=== PATIENT | female | born 1955 | race Caucasian/White ===

== ENCOUNTER 2016-07-04 15:20 | Emergency (ER) | payer MEDICARE, OTHER ==
[2016-07-04 13:24] LABS: BASOPHILS 0.3 %; BASOPHILS ABSOLUTE 0.03 10/3/uL (0.0-0.16); ER CBC TAT 0 Hrs 03 Mins; HEMATOCRIT 41.7 % (36.0-48.0); HEMOGLOBIN 14.9 g/dL (12.0-16.0); IMMATURE GRANULOCYTES 0.3 %; IMMATURE GRANULOCYTES ABSOLUTE 0.03 10/3/uL (0.0-0.11); LYMPHOCYTES 30.4 %; LYMPHOCYTES ABSOLUTE 2.94 10/3/uL (0.67-4.30); MEAN CORPUS HGB CONC 35.7 g/dL (32.0-36.0); MEAN CORPUSCULAR HEMOGLOB 34.7 pg (26.0-34.0); MEAN PLATELET VOLUME 8.6 fL (9.2-13.0); MONOCYTES 9.1 %; MONOCYTES ABSOLUTE 0.88 10/3/uL (0.21-1.20); NEUTROPHILS 58.9 %; PLATELET COUNT 376 10/3/uL (150-400); RBC DISTRIBUTION WIDTH 12.4 % (12.0-16.0); WHITE BLOOD CELLS 9.7 10/3/uL (4.5-10.5)
[2016-07-04 13:25] LABS: MANUAL DIFF NO %
[2016-07-04 13:27] LABS: ASCORBIC ACID (UR NOT ORDER) NEG (NEG); BILIRUBIN, URINE NEGATIVE (NEG); KETONE, URINE NEGATIVE (NEG); LEUKOCYTE ESTERASE(NOT OR NEG (NEG); NITRITE (URINE) NEG (NEG); WBC (NOT ORDERED) (RFLEX) 1 (0-5)
[2016-07-04 13:40] LABS: ALKALINE PHOSPHATASE 67 U/L (45-117); BUN (BLOOD UREA NITROGEN) 11 MG/DL (6-23); CALCIUM, SERUM 8.9 MG/DL (8.5-10.4); CHLORIDE, SERUM 102 MMOL/L (96-112); CO2 (CARBON DIOXIDE) 27 MMOL/L (24-34); CREATININE 0.86 MG/DL (0.55-1.02); GFR AFRICAN AMERICAN 86 ML/MIN (>=60); GFR NON AFRICAN AMERICAN 74 ML/MIN (>=60); GLOBULIN 3.9 G/DL (2.5-4.1); GLUCOSE, SERUM 105 MG/DL (60-99); POTASSIUM, SERUM 3.3 MMOL/L (3.5-5.3); SGPT(ALT) 20 U/L (5-65); SODIUM, SERUM 140 MMOL/L (135-148); TOTAL BILIRUBIN 0.3 MG/DL (0-1.2); TOTAL PROTEIN 7.9 G/DL (6.0-8.5)
[2016-07-04 13:41] LABS: SGOT(AST) 17 U/L (5-40)
[~2016-07-04 15:20] MED LIST: ACTONEL PO; ACTONEL150 MG PO; ATEN50 PO; BENEFIBE6 PO; CELEBREX2 PO; CONSTULOSE PO; COREG; COREG12 PO; FENESIN IR400 MG PO; FLUCON150 PO; KLONO1 PO; KLONO2 PO; KLONOPIN; KLONOPIN WAF1 MG PO; LEVAQUIN750 MG PO; LOP25 PO; MIRALAXPKT PO; OMEPRAZOLE; OXYCOD PO; OXYCON20 PO; PERCOCET1 TAB PO; PR25 PO; PRILO PO; PRILOSEC; PRILOSEC40 MG PO; ROXICODONE30 MG PO; SYSTANE OP; VAGIFEM25 MCG V; VALTREX1 GM PO; VICODINTAB PO; ZOCOR; ZOCOR40 PO
== END 2016-07-04 15:30 | disposition home or self-care (01) ==
LOC: ER 15:20
PROVIDERS: Nurse Practitioner Acute Care
DX: R10.31 Right lower quadrant pain (principal); R10.32 Left lower quadrant pain; E87.6 Hypokalemia; I73.9 Peripheral vascular disease, unspecified; F41.9 Anxiety disorder, unspecified; F17.200 Nicotine dependence, unspecified, uncomplicated; Z90.710 Acquired absence of both cervix and uterus; Z91.038 Other insect allergy status; Z79.899 Other long term (current) drug therapy
CPT/HCPCS: 74176; 80053; 81001; 83690; 85025; 96374; 99285; A9270-GY; J2405